=== PATIENT | male | born 1990 | race American Indian/Alaskan Native ===

== ENCOUNTER 2020-12-11 05:40 | Emergency (ER) | payer SELFPAY ==
[2020-12-11 06:38] VITALS: BP 121/76
== END 2020-12-11 06:30 | disposition left against medical advice (07) ==
LOC: ED 05:40
DX: R22.32 Localized swelling, mass and lump, left upper limb (principal); Z53.21 Procedure and treatment not carried out due to patient leaving prior to being seen by health care provider